=== PATIENT | female | born 1935 | race Caucasian/White ===

== ENCOUNTER 2016-07-01 12:10 | Inpatient (IN) | payer OTHER ==
--- NOTE | ~2016-07-01 | OP ---
Record Of Operation [facility] [address] [place]. [address] NAME: NANCY HORTA : 33 STATUS : ADM IN PAT#: [id number] AGE: 81 ADM/REG DATE : 07/01/16 MR#: [id number] REPORT SERV DATE: 07/03/16 DICTATED BY: ISAAC RUSHING DATE: 07/03/16 REPORT STATUS : Draft TRANSCRIBED BY: MODL DATE: 07/03/16 DATE OF PROCEDURE: 07/02/2016 PREOPERATIVE DIAGNOSES: 1. Severe thoracic myelopathy. 2. 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 3. Severe thoracic spinal stenosis, T11-12. 4. Moderate spinal stenosis with cord compression, T10-11, T12-L1. POSTOPERATIVE DIAGNOSES: 1. Severe thoracic myelopathy. 2. 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 3. Severe thoracic spinal stenosis, T11-12. 4. Moderate spinal stenosis with cord compression, T10-11, T12-L1. PROCEDURES: 1. Thoracic laminectomy, foraminotomy, and facetectomy T11-12, T12-L1. 2. Thoracic laminectomy, foraminotomy, T10-11. 3. Posterior lateral spinal fusion with segmental spinal instrumentation (SOLERA titanium system). SURGEON: Isaac Rushing D.O. FINE GRADE OPERATOR: Caleb Rajput. ANESTHESIA: General. ESTIMATED BLOOD LOSS: 200 mL. INDICATIONS: The indications for surgery and risks were explained. They are listed in the history and physical, see that for detail. DESCRIPTION OF PROCEDURE: The patient was identified in the preop holding area. Antibiotic prophylaxis given. Neurophysiology monitoring leads inserted. The patient brought to the operative suite. General anesthetic including endotracheal intubation was administered. Ley catheter was already in place. The patient was clam shelled into a Mitchell spine frame, rotated 180 degrees into a prone position. Bony prominences were carefully padded. The thoracolumbar spine scrubbed with Hibiclens solution. DuraPrep was painted. Sterile drapes applied. Please note that prepositional motor evoked potentials by the neurophysiologist monitoring team showed no evidence of motor evoked potential at all. The MEP's were completely absent. There was a very slight sensory presence, but even it was markedly diminished both in latency and amplitude. Because of the complexity of surgery and the need to identify correct level of surgery Record Of Operation [facility] [address] [place]. [address] NAME: NANCY HORTA : 33 STATUS : ADM IN PAT#: [id number] AGE: 81 ADM/REG DATE : 07/01/16 MR#: [id number] REPORT SERV DATE: 07/03/16 DICTATED BY: ISAAC RUSHING DATE: 07/03/16 REPORT STATUS : Draft TRANSCRIBED BY: DAVID DATE: 07/03/16 intraoperatively as well as desire to carry out the safest most precise dissection, we feel that intraoperative navigation was mandatory. We used intraoperative imaging to identify the correct level of surgery. A skin incision was carried out from T9 to the top of L2. The fascia divided in midline. The paraspinous muscles were retracted laterally and wide exposure was completed. I then did an intraoperative CT scan with the O-arm. CT information used to register the navigational system. With navigational assistance, we placed a pilot teacher hole in the pedicle of T12, T11, and T10 bilaterally. The pilot teacher holes were tapped. With navigational assistance, then using a combination of a cutting bur and a 3 and 2 mm monroe bur, we carried out a laminectomy and foraminotomy and facetectomy removing the entire facet of T12 and T11. She had severe facet hypertrophy. There was also ligamentum flavum hypertrophy and the cord was markedly compressed particularly at T11-12. T12-L1 had less compression and moderate. We completed a laminectomy and foraminotomy at T10-11, did not take the facet off at T10-11. We were very careful to not put any of Kerrison's within the epidural space to potentially cause any nerve compression. We only used the burs and the pituitary rongeurs to remove the thickened ligamentum flavum in the bony elements. After the decompression was completed, the wounds were irrigated. Decortication was carried out of the facet joints. Polyaxial SOLERA titanium screws were placed at T10, T11, T12, and L1. Roberth was cut to the appropriate length, placed over the top-loading screws. The set screws tightened with a torque wrench bilaterally. This did provide nice stability. Posterolateral fusion was carried out using the local bone graft allograft and extra-small dosage of bone protein. This was carried out from T10-L1. Intraoperative CT scan was repeated showing good position of all implants. Fascial layers were closed with a double looped #1 PDS suture. Subcutaneous tissue closed with 2-0 Vicryl suture. 2-0 vertical mattress nylon suture used for skin closure. Sterile dressings applied. The patient awakened, extubated, taken to recovery room in satisfactory condition having tolerated the procedure well. Sponge, needle, and instrument counts were correct. No intraoperative complications noted. /DAVID Isaac Rushing D.O. / [id number] CC: Record Of Operation [address] [place]. [address] NAME: NANCY HORTA : 33 STATUS : ADM IN [facility]#: [id number] AGE: 81 ADM/REG DATE : 07/01/16 MR#: [id number] REPORT SERV DATE: 07/03/16 DICTATED BY: ISAAC RUSHING DATE: 07/03/16 REPORT STATUS : Draft TRANSCRIBED BY: DAVID DATE: 07/03/16 Manny Castillo M.D.
--- NOTE | ~2016-07-01 | DS ---
Discharge Summary [facility] [address] [place]. [address] NAME: NANCY HORAT : 33 STATUS : DIS IN PAT#: [id number] AGE: 81 ADM/REG DATE : 07/01/16 MR#: [id number] REPORT SERV DATE: 07/17/16 DICTATED BY: ISAAC RUSHING DATE: 07/16/16 REPORT STATUS : Draft TRANSCRIBED BY: DAVID DATE: 07/16/16 Data Collection from hospitalization DISCHARGE DIAGNOSES: 1. Severe thoracic myelopathy. 2. 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 3. Severe thoracic spinal stenosis at T11-T12. 4. Moderate spinal stenosis with cord compression at T10-T11, T12-L1. 5. Gastroesophageal reflux disease. 6. Hyperthyroidism. 7. Osteoarthritis. 8. Former smoker. CONSULTATIONS: Eugenio Mcadams M.D. PROCEDURES PERFORMED: 1. Thoracic laminectomy, foraminotomy, and facetectomy at T11-T12 and T12-L1; thoracic laminectomy, foraminotomy at T10-T11; posterior lateral spinal fusion with segmental spinal instrumentation (SOLERA titanium system) on 07/02/2016. 2. MRI of the cervical spine without contrast on 07/01/2016. 3. MRI of the thoracic spine without contrast on 07/01/2016. PATHOLOGY: Lumbar spine repair - fragmented bone cartilage and soft tissue. No evidence was seen of an infectious or neoplastic process. MEDICATIONS: ( ) ( ) CONDITION AT DISCHARGE: Stable. DISPOSITION: The patient was discharged to [facility] on a regular diet with activities as instructed. HOSPITAL COURSE: This is an 81-year-old female who is a patient of Dr. Jackson, who recently had a lower extremity joint replacement. Immediately postop, the patient had a lot of difficulty trying to ambulate. On close evaluation after surgery, the patient was found to have significant neurologic weakness. She had been seen by Dr. Kwong, who ultimately obtained MRI of the lumbar spine. An incidental finding on the lumbar spine was severe cord compression at T11-12. There was a large disk herniation and spondylosis with facet arthropathy causing severe cord compression. There was also myelomalacia within the cord itself. There was also some degree of cord compression at T12-L1, although to a lesser degree. The [place] definitive evaluation. She was found to have severe thoracic myelopathy secondary to herniated nucleus pulposus, stenosis at T11-12 and T12-L1. It was felt that with such as a severe neurologic deficit that she should be admitted and would need to proceed with surgery as soon as possible. She was admitted to the hospital at this time for further evaluation and treatment. Upon admission, an MRI of the thoracic spine without contrast was performed as well as an Discharge Summary [address] [place]. [address] NAME: NANCY HORTA : 33 STATUS : DIS IN PAT#: [id number] AGE: 81 ADM/REG DATE : 07/01/16 MR#: [id number] REPORT SERV DATE: 07/17/16 DICTATED BY: ISAAC RUSHING DATE: 07/16/16 REPORT STATUS : Draft TRANSCRIBED BY: MODShaji DATE: 07/16/16 MRI of the cervical spine without contrast. The following day, she was taken to the operating room where she underwent the above-mentioned procedure. She tolerated this well, and there were no complications. On postop day #1, she did complain of a lot of back pain that was severe. Her blood pressure was low. Pain medication had been held. She was seen by Dr. Eugenio Mcadams. She had been asked to see the patient regarding hypotension. She did have a poor appetite. She was in a sinus rhythm. Orthostatic vital signs were going to be checked. A normal saline bolus was given. Her hypotension resolved. She was evaluated by Physical Therapy. Orthostatic vital signs were checked. Her back pain began to improve. Blood pressure control was better. She had no complaints of chest pain, shortness of breath, or abdominal pain. She has not had a bowel movement yet. On 07/05/2016, she said she was feeling great. She had been given milk of magnesia for constipation with MiraLAX. She was ambulating some. Her pain was controlled. The next day, she was passing flatus. Discharge planning was performed. On 07/07/2016, she was alert and cooperative. Discharge instructions were given. Due to her improved and stable condition, she was discharged to [facility] with the above-stated instructions. Information collected by: Alla Langley I submit the above information as my discharge summary. TG/MODL Isaac Rushing D.O. / [id number] CC: Manny Castillo M.D. [facility]
--- NOTE | ~2016-07-01 | PREOPHP ---
PreOp History and Physical [facility] [address] [place]. [address] NAME: NANCY HORTA : 33 STATUS : ADM IN [facility]#: [id number] AGE: 81 ADM/REG DATE : 07/01/16 MR#: [id number] REPORT SERV DATE: 07/02/16 DICTATED BY: ISAAC RUSHING DATE: 07/02/16 REPORT STATUS : Draft TRANSCRIBED BY: MODShaji DATE: 07/02/16 CHIEF COMPLAINT: 1. Severe back pain. 2. Lower extremity weakness. HISTORY OF PRESENT ILLNESS: This 81-year-old female patient of Dr. Jackson who has had a recent lower extremity joint replacement. The patient immediately postop had a lot of difficulty trying to ambulate. On close evaluation after the surgery, the patient was found to have significant neurologic weakness. The patient was then seen by Dr. Kwong, who ultimately obtained an MRI of the lumbar spine. An incidental finding on the lumbar spine was a severe cord compression at T11-12. There was a large disk herniation and spondylosis with facet arthropathy causing severe cord compression. There was also myelomalacia within the cord itself. There was also some degree of cord compression at T12-L1, although to a lesser degree. The patient was sent to me for more definitive evaluation. The patient currently denies any pain in her neck, shoulder, or arms. She has not had any trouble using her upper extremities. She has not lost bowel and bladder control but does have a lot of urinary urgency. She is now so weak in her lower extremities that she is having difficulty with ambulation. PAST MEDICAL HISTORY: 1. Osteoarthritis. 2. Hyperthyroidism. 3. Gastroesophageal reflux disease. PAST SURGICAL HISTORY: Cataract extraction, lens implants; colonoscopy; reconstructive foot surgery; abdominal hysterectomy; wisdom teeth extraction; arthroscopy of the shoulder and rotator cuff repair in 02/2011; and total knee arthroplasty in 04/2016. CURRENT MEDICATIONS: Include Flexeril, estradiol, hydrocodone, levothyroxine, nitrofurantoin, Prilosec, and trazodone. ALLERGIES: CODEINE. SOCIAL HISTORY: She is . still lives with her. She is a former smoker, but had smoked for many years. Does not use any alcohol. Her daughter is a process helper at the [employer]. FAMILY HISTORY: Her mother has had a lung cancer. REVIEW OF SYSTEMS: She wears corrective lenses. Denies current chest pain, pressure, or shortness of breath. Has no cardiac history. PHYSICAL EXAMINATION: VITAL SIGNS: She is 5 feet 4 inches, 138 pounds. GENERAL: Alert, cooperative, well oriented. She was in a wheelchair. She was accompanied PreOp History and Physical [address] [address] NAME: NANCY HORTA : 33 STATUS : ADM IN [facility]#: [id number] AGE: 81 ADM/REG DATE : 07/01/16 MR#: [id number] REPORT SERV DATE: 07/02/16 DICTATED BY: ISAAC RUSHING DATE: 07/02/16 REPORT STATUS : Draft TRANSCRIBED BY: DAVID DATE: 07/02/16 by her daughter. HEENT: She is normocephalic. Pupils are equal and reactive to light. Extraocular muscles are intact. Oral exam is grossly normal. NECK: Diminished range of motion just due to arthritic changes. EXTREMITIES: She has good motor strength in the upper extremities. Her reflexes are 2+/4, but there is no sensory deficit. No motor weakness. Franklin sign is mildly positive. LUNGS: Clear to auscultation. HEART: Rate is regular and rhythmic. ABDOMEN: Soft with good bowel sounds. MUSCULOSKELETAL: The spine exam itself reveals some mild deformity. There is some increase in the upper thoracic kyphosis. She has no pain on direct palpation of the paraspinous muscles or in the midline. There is no step-offs in the midline. The most significant finding is she has a severe motor weakness on the iliopsoas, she has only 2/5, her quadriceps is 3/5, her tibialis anterior and gastrocsoleus are 4/5. Her deep tendon reflexes are 3/4 in the lower extremities. The toes are upgoing. There is 4-5 beat ankle clonus. There is decreased mild sensation below the T11 level. Orthopedically, there is no pain with moving hips, knees, or ankles. Her right knee has some flexion contracture. She has pulses in both lower extremities. There are no abnormal skin lesions. ASSESSMENT: 1. Severe thoracic myelopathy secondary to herniated nucleus pulposus stenosis at T11-12, T12-L1. 2. Rule out possible stenosis of the cervical spine. RECOMMENDATION: With such severe neurologic deficit, I think she should be admitted. She needs to proceed with surgery as soon as possible. She will need a complete MRI of the cervical and thoracic spine to identify any other occult lesions of the cervical spine and to have better detail of the thoracic lesion, which was previously picked up just on a very top portion of the lumbar MRI. Finally, if there is not significant amount of cervical problems, then the patient needs to proceed with a cord decompression, this will include a laminectomy and facetectomy at T11, T12, and L1. She will then need a posterior spinal fusion with instrumentation from T10-L2. I have warned the patient and the daughter that she could wind up with complete paraplegia, loss of bowel and bladder control, etc. This would obviously be devastating, but she is right now unable to ambulate. She would currently be a Jacquelin C. Also, I have warned that there is always a risk of infection. There could be dural tears, neurologic deficits, and perioperative complications such as UTI, PE, pneumonia, ME, CVA, etc. We will proceed with surgery as soon as possible. /DAVID Isaac Rushing D.O. PreOp History and Physical [address] [address] NAME: NANCY HORTA : 33 STATUS : ADM IN [facility]#: [id number] AGE: 81 ADM/REG DATE : 07/01/16 MR#: [id number] REPORT SERV DATE: 07/02/16 DICTATED BY: ISAAC RUSHING DATE: 07/02/16 REPORT STATUS : Draft TRANSCRIBED BY: MODL DATE: 07/02/16 / [id number] CC: Manny Castillo M.D.
[~2016-07-01 12:10] MED LIST: ACET500CAP PO; C5 PO; ESTRACE0.5 MG PO; FLEX PO; IBU800 PO; LOP50 PO; MACROBID PO; MELATONIN5 M1 PO; OMEGA-3 KRILL PO; OXYCOD PO; PREM625 PO; PRILO PO; SYN075 PO; TRAZ100 PO; VITAMIN D1000 UNI1 PO; VITC500 PO; ZANAFLEX2 MG PO; ZOL100 PO
[2016-07-01] MEDS ORDERED: BION TEARS OPH (12:38)
[2016-07-01] MEDS ORDERED: VITC500 PO (12:38)
[2016-07-01] MEDS ORDERED: ACET500CAP PO ×2 (12:38)
[2016-07-01] MEDS ORDERED: PROBIOTIC PO (12:39)
[2016-07-01] MEDS ORDERED: PRILO PO (12:39)
[2016-07-01] MEDS ORDERED: MAXIMUM D3 PO (12:39)
[2016-07-01] MEDS ORDERED: FLEX PO (12:40)
[2016-07-01] MEDS ORDERED: NORCO1 TA1 PO (12:40)
[2016-07-01] MEDS ORDERED: LEVOTHYROXIN75 MCG PO (12:40)
[2016-07-01] MEDS ORDERED: MEDROLPAK4 PO (12:40)
[2016-07-01] MEDS ORDERED: ZANAFLEX2 MG PO (12:41)
[2016-07-01] MEDS ORDERED: ESTRACE0.5 MG PO (12:41)
[2016-07-01] MEDS ORDERED: TRAZ100 PO (12:41)
[2016-07-01] MEDS ORDERED: ZOL100 PO (12:41)
[2016-07-01 14:08] LABS: HEMATOCRIT 42.5 % (36.0-48.0); HEMOGLOBIN 13.6 g/dL (12.0-16.0); MANUAL DIFF YES %; MEAN CORPUSCULAR HEMOGLOB 29.1 pg (26.0-34.0); MEAN PLATELET VOLUME 10.3 fL (9.2-13.0); PLATELET COUNT 319 10/3/uL (150-400); RBC DISTRIBUTION WIDTH 14.3 % (12.0-16.0); RED CELL COUNT 4.67 10/6/uL (4.0-5.6); WHITE BLOOD CELLS 12.1 10/3/uL (4.5-10.5)
[2016-07-01 14:13] LABS: CHLORIDE, SERUM 100 MMOL/L (96-112); CO2 (CARBON DIOXIDE) 30 MMOL/L (24-34); CREATININE 0.73 MG/DL (0.55-1.02); GFR AFRICAN AMERICAN 88 ML/MIN (>=60); GFR NON AFRICAN AMERICAN 76 ML/MIN (>=60); POTASSIUM, SERUM 4.3 MMOL/L (3.5-5.3); SODIUM, SERUM 141 MMOL/L (135-148)
[2016-07-01 14:14] LABS: INTERNATIONAL NORMAL RATI 1.1 UNITS (-)
[2016-07-01 14:15] LABS: BUN (BLOOD UREA NITROGEN) 17 MG/DL (6-23); CALCIUM, SERUM 10.4 MG/DL (8.5-10.4); GLUCOSE, SERUM 106 MG/DL (60-99); PROTIME (NOT ORD) 13.6 SEC (12.0-14.5)
[2016-07-01 14:30] LABS: BAND NEUTROPHILS 5 %; LYMPHOCYTES 13 %; LYMPHOCYTES ABSOLUTE (CALC) 1.57 10/3/uL (0.67-4.30); MONOCYTES 5 %; MONOCYTES ABSOLUTE (CALC) 0.61 10/3/uL (0.21-1.20); NEUTROPHILS ABSOLUTE (CALC) 9.92 10/3/uL (2.02-8.40); PLATELET ESTIMATE ADQ (ADEQUATE); RBC MORPHOLOGY NORM (NORMAL); SEGMENTED NEUTROPHIL (0) 77 %; TOTAL NUCLEATED CELLS 100
[2016-07-01 23:47] LABS: ASCORBIC ACID (UR NOT ORDER) 40 (NEG); BILIRUBIN, URINE NEGATIVE (NEG); KETONE, URINE NEGATIVE (NEG); LEUKOCYTE ESTERASE(NOT OR NEG (NEG); WBC (NOT ORDERED) (RFLEX) < 1 (0-5)
[2016-07-02 20:29] LABS: BASOPHILS ABSOLUTE 0.11 10/3/uL (0.0-0.16); EOSINOPHILS 3.1 %; EOSINOPHILS ABSOLUTE 0.35 10/3/uL (0.0-0.53); HEMOGLOBIN 11.5 g/dL (12.0-16.0); IMMATURE GRANULOCYTES 1.1 %; IMMATURE GRANULOCYTES ABSOLUTE 0.12 10/3/uL (0.0-0.11); LYMPHOCYTES 34.7 %; LYMPHOCYTES ABSOLUTE 3.94 10/3/uL (0.67-4.30); MEAN CORPUS HGB CONC 32.2 g/dL (32.0-36.0); MEAN CORPUSCULAR HEMOGLOB 29.4 pg (26.0-34.0); MEAN CORPUSCULAR VOLUME 91.3 fL (80-100); MEAN PLATELET VOLUME 9.7 fL (9.2-13.0); MONOCYTES 6.2 %; NEUTROPHILS 53.9 %; NEUTROPHILS ABSOLUTE 6.13 10/3/uL (2.02-8.40); PLATELET COUNT 271 10/3/uL (150-400); RBC DISTRIBUTION WIDTH 14.2 % (12.0-16.0); RED CELL COUNT 3.91 10/6/uL (4.0-5.6); WHITE BLOOD CELLS 11.4 10/3/uL (4.5-10.5)
[2016-07-02 20:30] LABS: HEMATOCRIT 35.7 % (36.0-48.0); MANUAL DIFF NO %
[2016-07-02 20:42] LABS: BUN (BLOOD UREA NITROGEN) 19 MG/DL (6-23); CHLORIDE, SERUM 105 MMOL/L (96-112); CO2 (CARBON DIOXIDE) 29 MMOL/L (24-34); CREATININE 0.63 MG/DL (0.55-1.02); GFR AFRICAN AMERICAN 96 ML/MIN (>=60); GFR NON AFRICAN AMERICAN 83 ML/MIN (>=60); GLUCOSE, SERUM 109 MG/DL (60-99); POTASSIUM, SERUM 4.1 MMOL/L (3.5-5.3); SODIUM, SERUM 142 MMOL/L (135-148)
[2016-07-02 20:43] LABS: CALCIUM, SERUM 8.9 MG/DL (8.5-10.4)
[2016-07-03 04:54] LABS: BASOPHILS 0.5 %; BASOPHILS ABSOLUTE 0.06 10/3/uL (0.0-0.16); EOSINOPHILS 0.7 %; EOSINOPHILS ABSOLUTE 0.08 10/3/uL (0.0-0.53); HEMATOCRIT 33.4 % (36.0-48.0); HEMOGLOBIN 10.8 g/dL (12.0-16.0); IMMATURE GRANULOCYTES 0.5 %; IMMATURE GRANULOCYTES ABSOLUTE 0.06 10/3/uL (0.0-0.11); LYMPHOCYTES 7.2 %; LYMPHOCYTES ABSOLUTE 0.86 10/3/uL (0.67-4.30); MANUAL DIFF NO %; MEAN CORPUS HGB CONC 32.3 g/dL (32.0-36.0); MEAN CORPUSCULAR VOLUME 92.8 fL (80-100); MONOCYTES 7.8 %; MONOCYTES ABSOLUTE 0.93 10/3/uL (0.21-1.20); NEUTROPHILS 83.3 %; PLATELET COUNT 231 10/3/uL (150-400); RBC DISTRIBUTION WIDTH 14.2 % (12.0-16.0)
[2016-07-03 05:11] LABS: BUN (BLOOD UREA NITROGEN) 17 MG/DL (6-23); CALCIUM, SERUM 8.8 MG/DL (8.5-10.4); CHLORIDE, SERUM 101 MMOL/L (96-112); CO2 (CARBON DIOXIDE) 31 MMOL/L (24-34); CREATININE 0.69 MG/DL (0.55-1.02); GFR AFRICAN AMERICAN 93 ML/MIN (>=60); GFR NON AFRICAN AMERICAN 81 ML/MIN (>=60); POTASSIUM, SERUM 4.7 MMOL/L (3.5-5.3); SODIUM, SERUM 136 MMOL/L (135-148)
[2016-07-03 05:13] LABS: GLUCOSE, SERUM 138 MG/DL (60-99)
[2016-07-04 05:27] LABS: BASOPHILS 0.2 %; BASOPHILS ABSOLUTE 0.03 10/3/uL (0.0-0.16); EOSINOPHILS 1.7 %; EOSINOPHILS ABSOLUTE 0.21 10/3/uL (0.0-0.53); HEMATOCRIT 34.1 % (36.0-48.0); IMMATURE GRANULOCYTES 0.4 %; IMMATURE GRANULOCYTES ABSOLUTE 0.05 10/3/uL (0.0-0.11); LYMPHOCYTES 6.4 %; LYMPHOCYTES ABSOLUTE 0.79 10/3/uL (0.67-4.30); MEAN CORPUS HGB CONC 32.3 g/dL (32.0-36.0); MEAN CORPUSCULAR HEMOGLOB 29.3 pg (26.0-34.0); MEAN CORPUSCULAR VOLUME 90.9 fL (80-100); MEAN PLATELET VOLUME 10.2 fL (9.2-13.0); MONOCYTES 9.4 %; MONOCYTES ABSOLUTE 1.16 10/3/uL (0.21-1.20); NEUTROPHILS 81.9 %; NEUTROPHILS ABSOLUTE 10.13 10/3/uL (2.02-8.40); PLATELET COUNT 209 10/3/uL (150-400); RBC DISTRIBUTION WIDTH 14.1 % (12.0-16.0); RED CELL COUNT 3.75 10/6/uL (4.0-5.6); WHITE BLOOD CELLS 12.4 10/3/uL (4.5-10.5)
[2016-07-04 05:28] LABS: MANUAL DIFF NO %
[2016-07-04 05:46] LABS: BUN (BLOOD UREA NITROGEN) 7 MG/DL (6-23); CALCIUM, SERUM 9.4 MG/DL (8.5-10.4); CHLORIDE, SERUM 101 MMOL/L (96-112); CO2 (CARBON DIOXIDE) 31 MMOL/L (24-34); CREATININE 0.55 MG/DL (0.55-1.02); GFR AFRICAN AMERICAN 101 ML/MIN (>=60); GFR NON AFRICAN AMERICAN 87 ML/MIN (>=60); GLUCOSE, SERUM 149 MG/DL (60-99); POTASSIUM, SERUM 4.2 MMOL/L (3.5-5.3); SODIUM, SERUM 140 MMOL/L (135-148)
[2016-07-05 05:24] LABS: BASOPHILS 0.2 %; BASOPHILS ABSOLUTE 0.02 10/3/uL (0.0-0.16); EOSINOPHILS ABSOLUTE 0.23 10/3/uL (0.0-0.53); HEMOGLOBIN 10.8 g/dL (12.0-16.0); IMMATURE GRANULOCYTES 0.6 %; IMMATURE GRANULOCYTES ABSOLUTE 0.07 10/3/uL (0.0-0.11); LYMPHOCYTES 4.8 %; LYMPHOCYTES ABSOLUTE 0.56 10/3/uL (0.67-4.30); MEAN CORPUS HGB CONC 31.8 g/dL (32.0-36.0); MEAN CORPUSCULAR HEMOGLOB 29.2 pg (26.0-34.0); MEAN CORPUSCULAR VOLUME 91.9 fL (80-100); MEAN PLATELET VOLUME 9.9 fL (9.2-13.0); MONOCYTES 7.6 %; NEUTROPHILS 84.8 %; NEUTROPHILS ABSOLUTE 9.99 10/3/uL (2.02-8.40); PLATELET COUNT 184 10/3/uL (150-400); RBC DISTRIBUTION WIDTH 13.9 % (12.0-16.0); WHITE BLOOD CELLS 11.8 10/3/uL (4.5-10.5)
[2016-07-05 05:25] LABS: MANUAL DIFF NO %
[2016-07-05 05:35] LABS: BUN (BLOOD UREA NITROGEN) 7 MG/DL (6-23); CALCIUM, SERUM 9.4 MG/DL (8.5-10.4); CHLORIDE, SERUM 103 MMOL/L (96-112); CO2 (CARBON DIOXIDE) 33 MMOL/L (24-34); CREATININE 0.45 MG/DL (0.55-1.02); GFR AFRICAN AMERICAN 107 ML/MIN (>=60); GFR NON AFRICAN AMERICAN 93 ML/MIN (>=60); GLUCOSE, SERUM 138 MG/DL (60-99); SODIUM, SERUM 141 MMOL/L (135-148)
== END 2016-07-07 18:10 | DRG 460 ==
LOC: 3SO 12:10
PROVIDERS: Orthopaedic Surgery Orthopaedic Surgery of the Spine
PROC: 0RG60Z1 (ICD-10-PCS; principal; 2016-07-01)
PROC: 0RGA0Z1 (ICD-10-PCS; 2016-07-01)
PROC: 4A11X4G Monitoring of Peripheral Nervous Electrical Activity, Intraoperative, External Approach (ICD-10-PCS; 2016-07-01)
DX: M51.04 Intervertebral disc disorders with myelopathy, thoracic region (principal); E03.9 Hypothyroidism, unspecified; K21.9 Gastro-esophageal reflux disease without esophagitis
CPT/HCPCS: 71010; 72141; 72146; 80048; 81001; 82962; 83735; 85025; 85610; 87641; 88304; 88311; 93005; 97116-GP; 97162-GP; A9270-GY; C1713; J0690; J1170; J1644; J2250; J2370; J2405; J2710; J3010; J3370; P9045